=== PATIENT | female | born 1940 | race Caucasian/White ===

== ENCOUNTER 2017-06-09 22:44 | Emergency (ER) | payer MEDICARE, BC, OTHER ==
[2017-06-10] MEDS: LIDOCAINE W/EPINEPHRINE 1% 20ML VIAL SC (00:15)
[2017-06-10] MEDS: ADACEL/BOOSTRIX VACCINE (DIPHTH/PERTUSS/ACELL/TETANUS)0.5ML SYR (90715) IM (01:00)
== END 2017-06-10 01:39 | disposition home or self-care (01) ==
LOC: M ED 22:44
DX: S81.812A Laceration without foreign body, left lower leg, initial encounter (principal); W26.8XXA Contact with other sharp object(s), not elsewhere classified, initial encounter; Y92.099 Unspecified place in other non-institutional residence as the place of occurrence of the external cause; Y93.9 Activity, unspecified; Y99.9 Unspecified external cause status; Z79.82 Long term (current) use of aspirin; Z79.4 Long term (current) use of insulin; Z79.899 Other long term (current) drug therapy; Z88.8 Allergy status to other drugs, medicaments and biological substances
CPT/HCPCS: 90715